=== PATIENT | male | born 1980 | race Caucasian/White ===

== ENCOUNTER 2018-12-04 16:33 | Emergency (ER) | payer OTHER ==
[~2018-12-04] VITALS: Ht 182.9 cm; Wt 88.5 kg
[2018-12-04 16:49] VITALS: BP 127/69
--- NOTE | 2018-12-04 17:07 | NUR ---
Dr. Kaur evaluating patient at bedside.
--- NOTE | 2018-12-04 17:09 | NUR ---
DR ODOM AT BEDSIDE EVALUATING PT.
[2018-12-04] MEDS ORDERED: LEVOFLOXACIN 500 MG TAB PO ONE (17:15)
[2018-12-04] MEDS ORDERED: cefTRIAXone 1,000 MG in LIDOCAINE 1% ***ER ONLY *** 2.1 ML IM ONE (17:15)
[2018-12-04] MEDS ORDERED: cefTRIAXone 1,000 MG VIAL ONE (17:35)
[2018-12-04] MEDS ORDERED: LIDOCAINE MPF 1% - 5 mL VIAL 5 ML ONE (17:37)
[2018-12-04 18:12] VITALS: BP 121/65
--- NOTE | 2018-12-04 18:12 | NUR ---
Patient discharged with v/s stable. Written and verbal after care instructions given and explained. Patient alert, oriented and verbalized understanding of instructions. Ambulatory with steady gait. All questions addressed prior to discharge. ID band removed. Patient advised to follow up with PMD. Rx of Bactrim DS, Clindamycin Hydrochloride, Bactroban 2% topical cream given. Patient educated on indication of medication including possible reaction and side effects. Opportunity to ask questions provided and answered.
== END 2018-12-04 18:12 | disposition home or self-care (01) ==
LOC: MED 16:33
DX: S31.25XA Open bite of penis, initial encounter (principal); L08.9 Local infection of the skin and subcutaneous tissue, unspecified; W50.3XXA Accidental bite by another person, initial encounter; Y93.89 Activity, other specified; Y92.89 Other specified places as the place of occurrence of the external cause; Y99.8 Other external cause status
CPT/HCPCS: 90471; 90715; 96372; 99283; J0696; J2001

== ENCOUNTER 2019-05-05 22:28 | Emergency (ER) | payer OTHER ==
[~2019-05-05] VITALS: Ht 182.9 cm; Wt 89.8 kg
[2019-05-05 22:40] VITALS: BP 149/86
--- NOTE | 2019-05-05 22:43 | NUR ---
TO LOBBY A/W BED AMBULATORY
--- NOTE | 2019-05-05 23:56 | NUR ---
PT AMBULATED TO BED 1 WITH FAMILY MEMBER
--- NOTE | 2019-05-06 | NUR ---
PT BIB SELF FOR PENILE PAIN FOR 3 DAYS. PT DENIES DYSURIA. PT STATES SORENESS 8/10 PAIN. REDNESS TO PENIS/SCROTUM NOTED. NO DRAINAGE NOTED. PT DENIES FEVER OR CHILLS. HX: NONE RX: NONE AX: ZOLPIDEM
[2019-05-06 00:15] VITALS: BP 132/68
--- NOTE | 2019-05-06 00:15 | NUR ---
DPatient discharged with v/s stable. Written and verbal after care instructions given and explained BY DR ALVARADO. Patient alert, oriented and verbalized understanding of instructions. Ambulatory with steady gait. All questions addressed prior to discharge BY DR ALVARADO. ID band removed. Patient advised to follow up with PMD. Rx of DOXYCYCLINE given. Patient educated on indication of medication including possible reaction and side effects BY DR ALVARADO. Opportunity to ask questions provided and answered.
== END 2019-05-06 00:15 | disposition home or self-care (01) ==
LOC: MED 22:28
DX: L73.9 Follicular disorder, unspecified (principal); F17.200 Nicotine dependence, unspecified, uncomplicated; Z88.8 Allergy status to other drugs, medicaments and biological substances; Z71.6 Tobacco abuse counseling
CPT/HCPCS: 99283